=== PATIENT | female | born 1980 | race Caucasian/White ===

== ENCOUNTER → 2016-06-19 | Outpatient (CLI) | payer BC ==
[2016-06-19 13:16] LABS: BASO % 0.3 % (0.0-1.0); EOS # 0.1 K/mm3 (0.0-0.50); LARGE UNSTAINED CELL # 0.1 K/mm3 (0.0-0.4); LARGE UNSTAINED CELL % 0.9 % (0.0-4.0); LYMPH # 1.9 K/mm3 (1.5-4.5); LYMPH % 16.9 % (24.0-44.0); MEAN CORPUSCULAR HEMOGLOBIN 30.7 pg (27.0-33.0); MEAN CORPUSCULAR HGB CONC 32.9 g/dl (32.0-36.5); MEAN CORPUSCULAR VOLUME 93.3 fl (80.0-96.0); MONO # 0.6 K/mm3 (0.0-0.8); MONO % 5.4 % (0.0-5.0); NEUTROPHILS # 8.2 K/mm3 (1.8-7.7); NEUTROPHILS % 75.4 % (36.0-66.0); PLATELET COUNT, AUTOMATED 225 k/mm3 (150-450); RED CELL DISTRIBUTION WIDTH 12.8 % (11.5-14.5); WHITE BLOOD COUNT 10.8 K/mm3 (4.0-10.0)
== END ==
LOC: M SMT 10:08
PROVIDERS: ATTEND Obstetrics & Gynecology
DX: O09.523 Supervision of elderly multigravida, third trimester (principal)

== ENCOUNTER → 2016-08-20 | Outpatient (REF) | payer BC | LOC: M LAB REF 16:48 | PROVIDERS: ATTEND Obstetrics & Gynecology | DX: Z34.83 Encounter for supervision of other normal pregnancy, third trimester (principal) ==

== ENCOUNTER 2016-09-04 14:12 | Inpatient (IN) | payer BC ==
[~2016-09-04] VITALS: Ht 160 cm; Wt 120.0 kg
[2016-09-04] VITALS (18 sets, daily range): BP systolic 107–155; BP diastolic 56–83
[2016-09-04] MEDS ORDERED: PRENTAB9 PO (14:46)
[2016-09-04] MEDS ORDERED: LR 1,000 ML IV SCH (15:10)
[2016-09-04] MEDS ORDERED: OXYTOCIN DRIP 30 UNITS in APPROPRIATE DILUENT 1 EA IV SCH (15:15)
[2016-09-04 15:48] LABS: MEAN CORPUSCULAR HEMOGLOBIN 30.7 pg (27.0-33.0); MEAN CORPUSCULAR HGB CONC 33.7 g/dl (32.0-36.5); RED CELL DISTRIBUTION WIDTH 12.8 % (11.5-14.5); WHITE BLOOD COUNT 11.2 K/mm3 (4.0-10.0)
--- NOTE | 2016-09-04 17:11 | HPE ---
DATE OF ADMISSION: 09/04/2016 HISTORY: A 36-year-old 2, para 0-0-1-0 female at 38-5/7 weeks gestation by last menstrual period (LMP) consistent with 11-week ultrasound, estimated date of confinement (EDC) 09/13/2016, who presents with spontaneous loss of fluid per vagina starting at roughly 10:30 p.m. on 09/03/2016. She continued to have leakage. She had an occasional large gush of fluid. Contractions were minimal. She had no vaginal bleeding. She was confirmed in the office to have spontaneous rupture of membranes, as she had been presumably ruptured for approximately 16 hours, and she was sent to the hospital for delivery. MEDICAL HISTORY: 1. Exercise-induced asthma. 2. Uterine fibroids. SURGICAL HISTORY: Lorenzo teeth removal. ALLERGIES: 1. SULFA. 2. AMOXICILLIN. 3. CLINDAMYCIN. SOCIAL HISTORY: Father of the baby is involved. The patient denies cigarettes, alcohol or drug use. She lives in [place], [place]. FAMILY HISTORY: Noncontributory. PHYSICAL EXAMINATION: VITAL SIGNS: Blood pressure 132/80, no apparent distress. HEAD/NECK: Normal. LUNGS: Clear. HEART: Regular rate and rhythm. ABDOMEN: Nontender, gravid. heart tones category one. EXTREMITIES: Nontender. CERVIX: 2 cm, 50% effaced, -2 station, vertex, grossly ruptured, clear fluid noted. LABORATORY DATA: Blood type O positive. Rubella immune. RPR nonreactive. Hepatitis B and C negative. HIV negative. Diabetes screen of 83. GBS negative on 08/20/2016. ASSESSMENT: 36-year-old 2, para 0-0-1-0 female at 38-5/7 weeks gestation, presents with spontaneous rupture of membranes. The patient has been ruptured for greater than 15 hours by history. The patient is admitted on 09/04/2016.
[2016-09-05] VITALS (19 sets, daily range): BP systolic 117–148; BP diastolic 58–90
[2016-09-05] MEDS: miSOPROStol 50 MCG 1/2 TAB (S0191) PO SCH ×3 (08:36→17:03)
[2016-09-05] MEDS ORDERED: ONDANSETRON 4MG/2ML VIAL (J2405) IV SCH (18:30)
[2016-09-05] MEDS ORDERED: FENTANYL 2MCG/ML ROPIVACAINE 0.2% IN 0.9% NACL 200ML IVBAG As Ordered ONE (20:19)
[2016-09-05] MEDS ORDERED: NALOXONE INJ 0.4 MG/1 ML VIAL (J2310) IV PRN (20:29)
[2016-09-05] MEDS ORDERED: LACTATED RINGER'S 1000 ML IV PRN (20:29)
[2016-09-05] MEDS ORDERED: EPIDURAL/PCA KEYS XX PRN (20:29)
[2016-09-05] MEDS ORDERED: EPIDURAL COMMENT XX SCH (20:29)
[2016-09-05] MEDS ORDERED: ONDANSETRON 4MG/2ML VIAL (J2405) IV PRN ×2 (20:29→23:00)
[2016-09-05] MEDS ORDERED: diphenhydrAMINE INJ 50MG/ML VIAL (J1200) IV PRN (20:29)
[2016-09-05] MEDS ORDERED: FENTANYL/ROPIVACAINE/NACL BAG 200 ML EPIDURAL SCH (20:29)
[2016-09-05] MEDS ORDERED: REFRIGERATOR IV KEYS XX PRN (20:29)
[2016-09-05] MEDS ORDERED: ePHEDrine SULFATE 25 MG/5 ML(5MG/ML) SYRINGE IV PRN (20:29)
[2016-09-05 22:57] LABS: CORD GAS ABE V -8.6; CORD GAS HCO3 V 19.1 MEQ/L; CORD GAS O2 SAT V 63.6 %; CORD GAS PCO2 V 47.6 mmHg; CORD GAS PH V 7.222 UNITS; CORD GAS PO2 V 28.6 mmHg; CORD GAS SBC V 16.9 MEQ/L; CORD GAS TCO2 V 20.6 MEQ/L
[2016-09-05 22:58] LABS: CORD GAS ABE A -5.2; CORD GAS HCO3 A 24.6 MEQ/L; CORD GAS O2 SAT A 17.1 %; CORD GAS PCO2 A 67.4 mmHg; CORD GAS PH A 7.181 UNITS; CORD GAS PO2 A 12.3 mmHg; CORD GAS SBC A 18.3 MEQ/L; CORD GAS TCO2 A 26.7 MEQ/L
[2016-09-05] MEDS ORDERED: DOCUSATE SODIUM 100 MG CAP PO PRN (23:00)
[2016-09-05] MEDS ORDERED: ACETAMINOPHEN 500 MG TAB PO PRN (23:00)
[2016-09-05] MEDS ORDERED: OXYTOCIN DRIP 30 UNITS in APPROPRIATE DILUENT 1 EA IV ONE (23:00)
[2016-09-05] MEDS ORDERED: DIBUCAINE 1% OINTMENT 30GM TOP PRN (23:00)
[2016-09-05] MEDS ORDERED: METHYLERGONOVINE MALEATE 0.2 MG TAB PO PRN (23:00)
[2016-09-05] MEDS ORDERED: MEASLES,MUMPS,RUBELLA VACCINE INJ (MMR-II) (90707) SC SCH (23:00)
[2016-09-05] MEDS ORDERED: IBUPROFEN 800 MG TAB PO PRN (23:00)
[2016-09-05] MEDS ORDERED: RHOGAM 300 MCG (1500 IU) INJ (J2790) IM SCH (23:00)
[2016-09-06 00:40] VITALS: BP 131/71
--- NOTE | 2016-09-06 02:12 | DN ---
DATE OF DELIVERY: 09/05/2016 PREDELIVERY DIAGNOSIS: 38-5/7 weeks gestation, premature rupture of membranes. POSTDELIVERY DIAGNOSIS: Delivered. PROCEDURE: Spontaneous vaginal delivery. RECONCILEMENT CLERK: Kahlil Carter MD. ANESTHESIA: Epidural. ESTIMATED BLOOD LOSS: 300 mL. FINDINGS: 6 pound 10 ounce male infant, scores 9 and 9. DELIVERY SUMMARY: After approximately 35-minute second stage, the patient had spontaneous delivery of a 6 pound 10 ounce male , scores 9 and 9 under epidural anesthesia. Patent nuchal cord times one was clamped and cut on the perineum. The shoulders delivered spontaneously with ease. The infant cried spontaneously and was handed to the mother. The placenta delivered spontaneously and appeared to be intact. The patient received intravenous (IV) Pitocin immediately after delivery of the placenta. A second-degree perineal laceration and left sulcus laceration were repaired with 2-0 chromic in the usual fashion. Sponge and needle counts were correct.
[2016-09-06 05:08] VITALS: BP 135/80
[2016-09-06] MEDS: PRENATAL VITAMIN TAB PO SCH (08:41)
[2016-09-06 18:26] VITALS: BP 131/75
[2016-09-06 20:38] VITALS: BP 131/75
[2016-09-07 05:36] VITALS: BP 148/67
[2016-09-07] MEDS: PRENATAL VITAMIN TAB PO SCH (07:35)
[2016-09-07] MEDS ORDERED: IBUP800T23 PO (09:19)
[2016-09-07] MEDS ORDERED: TYLE500T78 PO (09:19)
== END 2016-09-07 14:00 | disposition home or self-care (01) | DRG 560 ==
LOC: M LDI 14:12 → M OBS 09-06 00:21
PROVIDERS: ADMIT Specialist; ATTEND Specialist
PROC: 10E0XZZ Delivery of Products of Conception, External Approach (ICD-10-PCS; principal; 2016-09-05)
PROC: 0KQM0ZZ Repair Perineum Muscle, Open Approach (ICD-10-PCS; 2016-09-05)
DX: O42.02 Full-term premature rupture of membranes, onset of labor within 24 hours of rupture (principal); O69.81X0 Labor and delivery complicated by cord around neck, without compression, not applicable or unspecified; Z3A.38 38 weeks gestation of pregnancy; O70.1 Second degree perineal laceration during delivery; Z37.0 Single live birth

== ENCOUNTER → 2017-08-16 | Outpatient (REF) | payer BC | LOC: M LAB REF 17:45 | DX: Z01.419 Encounter for gynecological examination (general) (routine) without abnormal findings (principal); Z11.51 Encounter for screening for human papillomavirus (HPV) | CPT/HCPCS: G0123 ==

== ENCOUNTER → 2019-11-23 | Outpatient (CLI) | payer BC ==
[~2019-11-23] MED LIST: IBUP1TAB7 PO; PRENTAB9 PO; TYLE500T78 PO
== END ==
LOC: M LABSMTC 12:39
PROVIDERS: ATTEND Pediatrics
DX: Z11.59 Encounter for screening for other viral diseases (principal)
CPT/HCPCS: C9803; U0002

== ENCOUNTER → 2020-03-06 | Outpatient (CLI) | payer BC ==
--- NOTE | 2020-03-06 16:19 | REP ---
INDICATION: N63.10 RT BREAST LUMP,MASTODYNIA; N63.10 RT BREAST LUMP,N64.4 MASTODYNIA. No family history of breast cancer. COMPARISON: None TECHNIQUE: MLO and CC views of both breasts performed with tomosynthesis. Spot compression views right breast performed at the site of the reported palpable lump just above the right nipple, which is marked on the skin. Focused right breast ultrasound is performed at that location as well. FINDINGS: There is moderate fibroglandular tissue in a symmetrical pattern bilaterally. No discrete mass or architectural distortion is seen. No clustered microcalcifications are seen. Real-time sonographic evaluation of right breast performed just above the nipple at the site of the reported palpable lump. No discrete cystic or solid mass is seen at that location. There are several subcentimeter cysts in the 12 o'clock region all less than 5 mm in diameter. The Volpara volumetric breast density pattern is C. IMPRESSION: BIRADS/ACR category 2, benign. No mass or clustered microcalcifications. There is no mammographic or sonographic evidence of a mass at the site of the reported palpable lump just above the right nipple. Several subcentimeter cysts are seen in the 12 o'clock region. A negative mammogram and ultrasound should not deter biopsy if there is a clinically suspicious palpable mass present. Clinical correlation and follow-up recommended. Recommend follow-up mammogram in 1 year. [facility] lifetime breast cancer risk assessment score is 16.0%. This mammogram was interpreted with the aid of an FDA-approved computer-aided detection system. The patient states she had a clinical breast exam in February 2020. The patient letter being requested is M2. RECOMMENDATION: Repeat screening mammography recommended 1 year (for women over 40). <Electronically signed by Yao Flor > 03/06/20 [id number]
== END ==
LOC: M WHC 12:58
PROVIDERS: ATTEND Nurse Practitioner Women's Health
DX: N60.01 Solitary cyst of right breast (principal); N63.10 Unspecified lump in the right breast, unspecified quadrant; N64.4 Mastodynia
CPT/HCPCS: 76642; 77066; G0279

== ENCOUNTER 2020-04-02 11:48 | Emergency (ER) | payer BC ==
[~2020-04-02] VITALS: Ht 160 cm; Wt 105.8 kg
[2020-04-02] MEDS ORDERED: NS 500 ML IV ONE (13:00)
[2020-04-02 13:22] LABS: BASO % 0.4 % (0.0-1.0); EOS # 0.1 10^3/uL (0.0-0.5); EOS % 0.6 % (0.0-3.0); HEMATOCRIT 40.5 % (36.0-47.0); HEMOGLOBIN 13.2 g/dl (12.0-15.5); LYMPH # 1.7 10^3/uL (1.5-5.0); LYMPH % 16.1 % (24.0-44.0); MEAN CORPUSCULAR HEMOGLOBIN 29.9 pg (27.0-33.0); MEAN CORPUSCULAR HGB CONC 32.6 g/dl (32.0-36.5); MEAN CORPUSCULAR VOLUME 91.6 fl (80.0-96.0); MONO % 9.8 % (0.0-5.0); NEUTROPHILS # 7.6 10^3/uL (1.5-8.5); NEUTROPHILS % 72.8 % (36.0-66.0); PLATELET COUNT, AUTOMATED 217 10^3/uL (150-450); RED BLOOD COUNT 4.42 10^6/uL (4.00-5.40); WHITE BLOOD COUNT 10.4 10^3/uL (4.0-10.0)
[2020-04-02] MEDS ORDERED: ISOVUE-370 76% 100ML VIAL As Ordered ONE (13:38)
[2020-04-02 13:45] LABS: ALBUMIN 3.1 GM/DL (3.2-5.2); ALT/SGPT 26 U/L (12-78); BILIRUBIN,DIRECT < 0.1 MG/DL (0.0-0.2); BILIRUBIN,TOTAL 0.5 MG/DL (0.2-1.0); LIPASE 77 U/L (73-393); TOTAL PROTEIN 7.1 GM/DL (6.4-8.2)
--- NOTE | 2020-04-02 14:04 | REP ---
INDICATION: lower abdominal pain; r/o diverticulitis vs colitis. COMPARISON: None TECHNIQUE: 100 cc Isovue 370 FINDINGS: The lung bases are clear. The liver, gallbladder, spleen, pancreas, adrenal glands, and kidneys are within normal limits. Incidental tiny bilateral renal cortical focal low densities are seen and likely represent tiny renal cortical cysts. These are too small for precise CT characterization. The abdominal aorta and para-aortic regions are within normal limits. There are multiple scattered colonic diverticula. There is fatty infiltration surrounding the sigmoid colon without evidence of wall thickening and a small amount of free pelvic fluid. There is AT shaped radiodensity in the uterus consistent with an IUD. There are some changes in the uterus most consistent with myomatous changes and calcifications. Bone window technique through the examination shows the osseous structures to be within normal limits for the patient's age. IMPRESSION: 1. Sigmoid colon diverticulitis. 2. IUD and uterine myomatous changes as described above. 3. Other findings as described above. <Electronically signed by Amado Flores > 04/02/20 1400
--- NOTE | 2020-04-02 14:11 | REP ---
INDICATION: upper abdominal pain; left sided chest pain. COMPARISON: CT today. TECHNIQUE: Supine and erect views of the abdomen and pelvis are performed as well as a PA view of the chest. FINDINGS: There is no free air or obstruction. There is no small bowel dilatation. Contrast material is visualized in the nondilated pelvocaliceal systems bilaterally and nondilated ureters. Contrast is seen in the bladder. IUD is seen in the pelvis above the bladder. No infiltrate is seen in either lung. The heart mediastinum are within normal limits. IMPRESSION: No free air or obstruction. No infiltrate in either lung. <Electronically signed by Yao Flor > 04/02/20 [id number]
[2020-04-02] MEDS ORDERED: CIPR-249 PO (14:21)
[2020-04-02] MEDS ORDERED: FLAG500T PO (14:21)
[2020-04-02 14:30] VITALS: BP 138/75
== END 2020-04-02 15:09 | disposition home or self-care (01) ==
LOC: M ED 11:48
DX: K57.32 Diverticulitis of large intestine without perforation or abscess without bleeding (principal); I10 Essential (primary) hypertension; Z88.2 Allergy status to sulfonamides; Z88.1 Allergy status to other antibiotic agents; Z88.0 Allergy status to penicillin
CPT/HCPCS: 74021; 74177; 80047; 80076; 81001; 83690; 84702; 85025; 87086; 99284; Q9967

== ENCOUNTER → 2020-09-25 | Outpatient (REF) ==
[~2020-09-25] MED LIST changes: +CIPR-249 PO; +FLAG500T PO
== END ==
LOC: M LABSMTC 12:18
PROVIDERS: ATTEND Pediatrics
DX: Z20.828 Contact with and (suspected) exposure to other viral communicable diseases (principal)

== ENCOUNTER → 2021-04-29 | Outpatient (REF) | LOC: M EMP 13:22 | PROVIDERS: ATTEND Family Medicine | DX: Z20.828 Contact with and (suspected) exposure to other viral communicable diseases (principal) ==

== ENCOUNTER → 2021-09-04 | Outpatient (REF) | LOC: M LABSMTC 09:19 | PROVIDERS: ATTEND Family Medicine | DX: Z20.822 Contact with and (suspected) exposure to COVID-19 (principal) ==

== ENCOUNTER → 2021-09-22 | Outpatient (CLI) | payer BC ==
[2021-09-22 10:38] LABS: BASO # 0.1 10^3/uL (0.0-0.2); BASO % 0.8 % (0.0-1.0); EOS # 0.2 10^3/uL (0.0-0.5); EOS % 2.7 % (0.0-3.0); HEMATOCRIT 41.5 % (36.0-47.0); HEMOGLOBIN 13.8 g/dl (12.0-15.5); LYMPH # 2.4 10^3/uL (1.5-5.0); LYMPH % 31.2 % (24.0-44.0); MEAN CORPUSCULAR HEMOGLOBIN 30.1 pg (27.0-33.0); MEAN CORPUSCULAR HGB CONC 33.3 g/dl (32.0-36.5); MEAN CORPUSCULAR VOLUME 90.6 fl (80.0-96.0); MONO # 0.7 10^3/uL (0.0-0.8); MONO % 8.5 % (2.0-8.0); NEUTROPHILS # 4.3 10^3/uL (1.5-8.5); NEUTROPHILS % 56.5 % (36.0-66.0); PLATELET COUNT, AUTOMATED 259 10^3/uL (150-450); RED BLOOD COUNT 4.58 10^6/uL (4.00-5.40); WHITE BLOOD COUNT 7.7 10^3/uL (4.0-10.0)
[2021-09-22 11:30] LABS: ALBUMIN 3.4 GM/DL (3.2-5.2); ALT/SGPT 25 U/L (12-78); BILIRUBIN,TOTAL 0.5 MG/DL (0.2-1.0); BLOOD UREA NITROGEN 10 MG/DL (7-18); CALCIUM LEVEL 8.7 MG/DL (8.5-10.1); CARBON DIOXIDE LEVEL 28 MEQ/L (21-32); CHLORIDE LEVEL 108 MEQ/L (98-107); CHOLESTEROL LEVEL 128 MG/DL (<200); CHOLESTEROL RISK RATIO 1.969 (<5); CREATININE FOR GFR 0.72 MG/DL (0.55-1.30); GLOMERULAR FILTRATION RATE > 60.0 (>58); GLUCOSE, FASTING 85 MG/DL (70-100); HDL CHOLESTEROL 65 MG/DL (>40); LDL CHOLESTEROL 54 MG/DL (<100); NON-HDL-C 63 MG/DL; POTASSIUM SERUM 4.5 MEQ/L (3.5-5.1); SODIUM LEVEL 138 MEQ/L (136-145); THYROXINE (T4) 9.5 UG/DL (4.5-12.0); TOTAL PROTEIN 7.2 GM/DL (6.4-8.2); TRIGLYCERIDES LEVEL 45 MG/DL (<150)
== END ==
LOC: M PLALAB 08:40
PROVIDERS: ATTEND Internal Medicine
DX: E66.01 Morbid (severe) obesity due to excess calories (principal); Z13.220 Encounter for screening for lipoid disorders

== ENCOUNTER → 2021-11-05 | Outpatient (CLI) | payer BC | LOC: M WHC 11:18 | PROVIDERS: ATTEND Specialist | DX: Z12.31 Encounter for screening mammogram for malignant neoplasm of breast (principal); N63.10 Unspecified lump in the right breast, unspecified quadrant ==

== ENCOUNTER → 2021-12-03 | Outpatient (CLI) | payer BC | LOC: M WHC 14:46 | PROVIDERS: ATTEND Specialist | DX: N63.10 Unspecified lump in the right breast, unspecified quadrant (principal) | CPT/HCPCS: 77065; G0279 ==

== ENCOUNTER → 2022-09-15 | Outpatient (CLI) | payer BC ==
[2022-09-15 11:58] LABS: BASO # 0.1 10^3/uL (0.0-0.2); BASO % 0.7 % (0.0-1.0); EOS # 0.2 10^3/uL (0.0-0.5); EOS % 1.9 % (0.0-3.0); HEMATOCRIT 43.4 % (36.0-47.0); HEMOGLOBIN 14.2 g/dl (12.0-15.5); LYMPH # 2.1 10^3/uL (1.5-5.0); LYMPH % 25.1 % (24.0-44.0); MEAN CORPUSCULAR HEMOGLOBIN 30.2 pg (27.0-33.0); MEAN CORPUSCULAR HGB CONC 32.7 g/dl (32.0-36.5); MEAN CORPUSCULAR VOLUME 92.3 fl (80.0-96.0); MONO # 0.5 10^3/uL (0.0-0.8); MONO % 6.5 % (2.0-8.0); NEUTROPHILS # 5.3 10^3/uL (1.5-8.5); NEUTROPHILS % 64.7 % (36.0-66.0); PLATELET COUNT, AUTOMATED 225 10^3/uL (150-450); WHITE BLOOD COUNT 8.2 10^3/uL (4.0-10.0)
[2022-09-15 12:17] LABS: ALBUMIN 3.4 G/DL (3.2-5.2); ALKALINE PHOSPHATASE 54 U/L (46-116); ALT/SGPT 28 U/L (7.0-40); AST/SGOT 22 U/L (<34); BILIRUBIN,TOTAL 0.6 MG/DL (0.3-1.2); BLOOD UREA NITROGEN 15 MG/DL (9-23); CALCIUM LEVEL 8.8 MG/DL (8.5-10.1); CARBON DIOXIDE LEVEL 26 MMOL/L (20-31); CHLORIDE LEVEL 107 MMOL/L (98-107); CHOLESTEROL LEVEL 147 MG/DL (<200); CHOLESTEROL RISK RATIO 2.07 (<5); CREATININE FOR GFR 0.73 MG/DL (0.55-1.30); GLOMERULAR FILTRATION RATE > 60.0 (>58); GLUCOSE, FASTING 88 MG/DL (60-100); HDL CHOLESTEROL 70.7 MG/DL (>40); LDL CHOLESTEROL 66.1 MG/DL (<100); NON-HDL-C 76.3 MG/DL; POTASSIUM SERUM 4.5 MMOL/L (3.5-5.1); SODIUM LEVEL 139 MMOL/L (136-145); TOTAL PROTEIN 7.1 G/DL (5.7-8.2); TRIGLYCERIDES LEVEL 51 MG/DL (<150)
[2022-09-15 12:20] LABS: THYROID STIMULATING HORMONE 1.554 uIU/ML (0.55-4.78)
== END ==
LOC: M PLALAB 08:19
PROVIDERS: ATTEND Internal Medicine
DX: E66.01 Morbid (severe) obesity due to excess calories (principal); Z13.220 Encounter for screening for lipoid disorders; Z13.89 Encounter for screening for other disorder

== ENCOUNTER → 2022-12-31 | Outpatient (CLI) | payer BC | LOC: M WHC 12:55 | PROVIDERS: ATTEND Specialist | DX: Z12.31 Encounter for screening mammogram for malignant neoplasm of breast (principal) ==

== ENCOUNTER → 2023-03-10 | Outpatient (REF) | payer BC | LOC: M SFHCWAGY 13:12 | PROVIDERS: ATTEND Specialist | DX: Z12.4 Encounter for screening for malignant neoplasm of cervix (principal); Z77.9 Other contact with and (suspected) exposures hazardous to health | CPT/HCPCS: 87624; G0123 ==

== ENCOUNTER → 2023-07-23 | Outpatient (CLI) | payer BC ==
[~2023-07-23] MED LIST changes: +GASTROGRAFIN SOLUTION 30ML As Ordered ONE; +ISOVUE-370 76% 100ML VIAL As Ordered ONE
== END ==
LOC: M RAD 06:59
PROVIDERS: ATTEND Nurse Practitioner Family
DX: K57.32 Diverticulitis of large intestine without perforation or abscess without bleeding (principal); D25.9 Leiomyoma of uterus, unspecified; D17.71 Benign lipomatous neoplasm of kidney
CPT/HCPCS: 74177; Q9963; Q9967

== ENCOUNTER → 2023-09-13 | Outpatient (CLI) | payer BC ==
[~2023-09-13] MED LIST changes: -GASTROGRAFIN SOLUTION 30ML As Ordered ONE; -ISOVUE-370 76% 100ML VIAL As Ordered ONE
[2023-09-13 11:07] LABS: BASO # 0.1 10^3/uL (0.0-0.2); BASO % 0.9 % (0.0-1.0); EOS # 0.2 10^3/uL (0.0-0.5); EOS % 2.9 % (0.0-3.0); HEMATOCRIT 40.5 % (36.0-47.0); HEMOGLOBIN 13.3 g/dl (12.0-15.5); LYMPH % 36.3 % (24.0-44.0); MEAN CORPUSCULAR HEMOGLOBIN 30.2 pg (27.0-33.0); MEAN CORPUSCULAR HGB CONC 32.8 g/dl (32.0-36.5); MONO # 0.6 10^3/uL (0.0-0.8); MONO % 10.3 % (2.0-8.0); NEUTROPHILS # 2.7 10^3/uL (1.5-8.5); NEUTROPHILS % 49.4 % (36.0-66.0); PLATELET COUNT, AUTOMATED 218 10^3/uL (150-450); WHITE BLOOD COUNT 5.5 10^3/uL (4.0-10.0)
[2023-09-13 11:32] LABS: THYROID STIMULATING HORMONE 2.225 uIU/ML (0.55-4.78)
[2023-09-13 11:33] LABS: ALBUMIN 3.4 G/DL (3.2-5.2); ALKALINE PHOSPHATASE 51 U/L (46-116); ALT/SGPT 23 U/L (7.0-40); AST/SGOT 18 U/L (<34); BILIRUBIN,TOTAL 0.6 MG/DL (0.3-1.2); BLOOD UREA NITROGEN 12 MG/DL (9-23); CALCIUM LEVEL 8.7 MG/DL (8.5-10.1); CARBON DIOXIDE LEVEL 29 MMOL/L (20-31); CHLORIDE LEVEL 106 MMOL/L (98-107); CHOLESTEROL LEVEL 134 MG/DL (<200); CHOLESTEROL RISK RATIO 2.14 (<5); CREATININE FOR GFR 0.73 MG/DL (0.55-1.30); GLOMERULAR FILTRATION RATE > 60.0 (>58); GLUCOSE, FASTING 88 MG/DL (60-100); HDL CHOLESTEROL 62.4 MG/DL (>40); LDL CHOLESTEROL 62.4 MG/DL (<100); NON-HDL-C 71.6 MG/DL; POTASSIUM SERUM 4.3 MMOL/L (3.5-5.1); SODIUM LEVEL 142 MMOL/L (136-145); TOTAL PROTEIN 6.7 G/DL (5.7-8.2); TRIGLYCERIDES LEVEL 46 MG/DL (<150)
== END ==
LOC: M PLALAB 08:31
PROVIDERS: ATTEND Internal Medicine
DX: Z00.00 Encounter for general adult medical examination without abnormal findings (principal); Z13.220 Encounter for screening for lipoid disorders

== ENCOUNTER → 2024-02-16 | Outpatient (CLI) | payer BC | LOC: M WHC 12:37 | PROVIDERS: ATTEND Specialist | DX: Z12.31 Encounter for screening mammogram for malignant neoplasm of breast (principal); R92.333 Mammographic heterogeneous density, bilateral breasts ==

== ENCOUNTER → 2024-06-20 | Outpatient (REF) | payer BC | LOC: M SFHCWAGY 13:17 | PROVIDERS: ATTEND Specialist | DX: Z01.419 Encounter for gynecological examination (general) (routine) without abnormal findings (principal) ==

== ENCOUNTER → 2024-12-20 | Outpatient (REF) ==
[2024-12-20 11:04] LABS: SOFIA COVID ANTIGEN POSITIVE (NEGATIVE)
== END ==
LOC: M EMP 07:30
PROVIDERS: ATTEND Family Medicine
DX: Z11.52 Encounter for screening for COVID-19 (principal)

== ENCOUNTER → 2025-03-14 | Outpatient (CLI) | payer BC | LOC: M WHC 12:54 | PROVIDERS: ATTEND Specialist | DX: Z12.31 Encounter for screening mammogram for malignant neoplasm of breast (principal); R92.8 Other abnormal and inconclusive findings on diagnostic imaging of breast; R92.323 Mammographic fibroglandular density, bilateral breasts ==

== ENCOUNTER → 2025-03-28 | Outpatient (CLI) | payer BC | LOC: M WHC 11:09 | PROVIDERS: ATTEND Specialist | DX: Z12.31 Encounter for screening mammogram for malignant neoplasm of breast (principal); N60.11 Diffuse cystic mastopathy of right breast ==